=== PATIENT | male | born 1970 | race American Indian/Alaskan Native ===

== ENCOUNTER 2016-10-14 07:54 | Emergency (ER) | payer SELFPAY ==
[2016-10-14] MEDS ORDERED: CATAPRES PO ONE (11:12)
[2016-10-14 13:22] VITALS: BP 130/76
[2016-10-14] MEDS ORDERED: TYLENOL/CODEINE PO ONE (13:23)
--- NOTE | 2016-10-14 13:33 | Emergency Department Report ---
Entered by EVELYN FERGUSON, acting as scribe for PAM GONZALEZ PA. ED General Adult HPI - General Chief complaint: Sore Throat Stated complaint: SORE THROAT/COLD/HEADACHE Time Seen by Provider: 10/14/16 10:28 Source: patient Mode of arrival: Ambulatory Limitations: No Limitations - History of Present Illness Initial comments: 46 year old male presents to the ED for evaluation of sore throat and cough for 4 days. Patient also reports painful swallowing, subjective fever, congestion, and mild headache. Rates his throat pain as 9/10. He reports PMHx HTN but notes noncompliance with HTN medication for 1 year. Denies chest pain, shortness of breath, vision changes, abdominal pain, nausea, and vomiting. -: days(s) (4) Improves with: none Worsens with: other (swallowing) Associated Symptoms: cough, fever/chills (subjective), headaches, other (sore throat). denies: chest pain, nausea/vomiting, shortness of breath Treatments Prior to Arrival: none - Related Data Previous Rx's Medication Instructions Recorded Last Taken Type Acetamin/Codeine 120-12Mg/5 ml 5 ml PO TID PRN #100 ml 10/14/16 Unknown Rx [Tylenol/Codeine 120-12 mg/5 ml] Amoxicillin [Amoxicillin TAB] 875 mg PO BID #20 tablet 10/14/16 Unknown Rx amLODIPine [Norvasc] 5 mg PO DAILY #30 tab 10/14/16 Unknown Rx Allergies Allergy/AdvReac Type Severity Reaction Status Date / Time No Known Allergies Allergy Unverified 10/14/16 08:08 ED Review of Systems Comment: All other systems reviewed and negative Constitutional: chills, fever (subjective) Eyes: denies: vision change ENT: throat pain, other (difficulty swallowing). denies: ear pain, congestion ( nasal) Respiratory: cough, other (chest congestion). denies: shortness of breath Cardiovascular: denies: chest pain Gastrointestinal: denies: abdominal pain, nausea, vomiting, diarrhea ED Past Medical Hx - Past Medical History Previous Medical History?: Yes Hx Hypertension: Yes Hx Asthma: Yes - Surgical History Past Surgical History?: No - Social History Smoking Status: Never Smoker Substance Use Type: Non Opiate Pain, Other - Medications Home Medications: Home Medications Medication Instructions Recorded Confirmed Last Taken Type Acetamin/Codeine 120-12Mg/5 ml 5 ml PO TID PRN #100 ml 10/14/16 Unknown Rx [Tylenol/Codeine 120-12 mg/5 ml] Amoxicillin [Amoxicillin TAB] 875 mg PO BID #20 tablet 10/14/16 Unknown Rx amLODIPine [Norvasc] 5 mg PO DAILY #30 tab 10/14/16 Unknown Rx ED Physical Exam - General Limitations: No Limitations General appearance: alert, in no apparent distress - Head Head exam: Present: atraumatic, normocephalic - Eye Eye exam: Present: PERRL, EOMI - ENT ENT exam: Present: mucous membranes moist, normal external ear exam (External auditory canals and tympanic membranes clear; hearing grossly intact.), other ( Normal nasal mucosa with no nasal discharge.) - Expanded ENT Exam Expanded Throat exam: Positive: tonsillar erythema, tonsillomegaly. Negative: tonsillar exudate, R peritonsillar mass, L peritonsillar mass - Neck Neck exam: Present: full ROM, lymphadenopathy (left anterior cervical lymphadenopathy). Absent: meningismus, thyromegaly - Respiratory Respiratory exam: Present: normal lung sounds bilaterally. Absent: respiratory distress, wheezes, rales, rhonchi, chest wall tenderness - Cardiovascular Cardiovascular Exam: Present: regular rate, normal rhythm, normal heart sounds. Absent: systolic murmur, diastolic murmur - GI/Abdominal GI/Abdominal exam: Present: soft, normal bowel sounds. Absent: distended, tenderness, guarding, rebound, rigid - Neurological Exam Neurological exam: Present: alert, oriented X3, CN II-XII intact, normal gait. Absent: motor sensory deficit - Expanded Neurological Exam Expanded Patient oriented to: Present: person, place, time Speech: Present: fluid speech Cranial nerves: EOM's Intact: Normal, Facial Sensation: Normal Cerebellar function: [place]: Normal Motor strength exam: RUE: 5, LUE: 5, RLE: 5, LLE: 5 Best Eye Response ([place]): (4) open spontaneously Best Motor Response ([place]): (6) obeys commands Best Verbal Response ([place]): (5) oriented [place] Total: 15 - Psychiatric Psychiatric exam: Present: normal affect, normal mood - Skin Skin exam: Present: warm, dry, intact ED Course Vital Signs 03/10/14/16 10/14/16 08:09 11:34 11:35 Temperature 97.9 F Pulse Rate 88 88 Respiratory 20 16 Rate Blood Pressure 175/116 172/112 Blood Pressure 172/112 [Right] O2 Sat by Pulse 97 98 Oximetry 10/14/16 13:21 Temperature Pulse Rate 84 Respiratory 16 Rate Blood Pressure Blood Pressure 130/76 [Right] O2 Sat by Pulse 98 Oximetry ED Medical Decision Making - Lab Data Vital Signs 10/14/16 10/14/16 10/14/16 08:09 11:34 11:35 Temperature 97.9 F Pulse Rate 88 88 Respiratory 20 16 Rate Blood Pressure 175/116 172/112 Blood Pressure 172/112 [Right] O2 Sat by Pulse 97 98 Oximetry 10/14/16 13:21 Temperature Pulse Rate 84 Respiratory 16 Rate Blood Pressure Blood Pressure 130/76 [Right] O2 Sat by Pulse 98 Oximetry - Medical Decision Making 46 year old male patient presents complaining of sore throat, cough, and mild headache. Patient was given clonidine 0.2 mg and reports no headache post medication. Emphasized the importance of follow up with primary care physician and explained to patient that uncontrolled hypertension can lead to long-term complications of hypertension/elevated blood pressure including stroke , heart attack, disability, , paralysis, permanent loss of quality of life. Patient expressed understanding. His rapid strep test was negative. Patient is in no acute distress at this time. He will be discharged home and is encouraged to follow up with a primary care provider. He will be sent home on Norvasc, amoxicillin and Tylenol/codeine and is encouraged to return to the emergency room for any worsening symptoms. ED Disposition Clinical Impression: HTN (hypertension) Qualifiers: Hypertension type: essential hypertension Qualified Code(s): I10 - Essential ( primary) hypertension Pharyngitis Qualifiers: Pharyngitis/tonsillitis etiology: unspecified etiology Qualified Code(s): J02.9 - Acute pharyngitis, unspecified Disposition: DISCHARGED TO HOME OR SELFCARE Is pt being admited?: No Does the pt Need Aspirin: No Condition: Stable Instructions: Hypertension (ED), Strep Throat (ED), Pharyngitis (ED) Additional Instructions: Follow-up with primary care provider. Return to the emergency department if symptoms worsen. Prescriptions: Acetamin/Codeine 120-12Mg/5 ml [Tylenol/Codeine 120-12 mg/5 ml] 5 ml PO TID PRN #100 ml PRN Reason: Cough amLODIPine [Norvasc] 5 mg PO DAILY #30 tab Amoxicillin [Amoxicillin TAB] 875 mg PO BID #20 tablet Referrals: PRIMARY CARE,MD [Primary Care Provider] - 3-5 Days [facility] [Outside] - 3-5 Days Forms: Work/School Release Form(ED) Time of Disposition: 13:28 This documentation as recorded by the PHYLLIS goss REBEKAH,accurately reflects the service I personally performed and the decisions made by LISA alvarez NATASHA, PA.
== END 2016-10-14 13:30 | disposition home or self-care (01) ==
LOC: ED 07:54
DX: I10 Essential (primary) hypertension (principal); J02.9 Acute pharyngitis, unspecified; J45.909 Unspecified asthma, uncomplicated
CPT/HCPCS: 87116; 87430; 99283

== ENCOUNTER 2019-07-06 13:04 | Emergency (ER) | payer SELFPAY ==
--- NOTE | 2019-07-06 13:20 | Emergency Department Report ---
Blank Doc - Documentation Documentation: 49-year-old male that presents with right leg pain with started in the calf ar ea. This initial assessment/diagnostic orders/clinical plan/treatment(s) is/are subject to change based on patient's health status, clinical progression and re- assessment by fellow clinical providers in the ED. Further treatment and workup at subsequent clinical providers discretion. Patient/guardians urged not to elope from the ED as their condition may be serious if not clinically assessed and managed. Initial orders include: 1- Patient sent to [facility] for further evaluation and treatment 2- Doppler US
[2019-07-06 13:43] VITALS: BP 159/93
--- NOTE | 2019-07-06 14:43 | Vascular Lab Report ---
DUPLEX DOPPLER LOWER EXTREMITY VEINS, RIGHT INDICATION: right leg pain. TECHNIQUE: Duplex doppler imaging was performed through the veins of the right lower extremity using venous comp ression and other maneuvers. COMPARISON: No relevant prior imaging study available. FINDINGS: Right Common femoral vein: Negative. Right Superficial femoral vein: Negative. Right Popliteal vein: Negative. Right Calf veins: Negative. Additional findings: None.. IMPRESSION: 1. No sonographic evidence for DVT in the right lower extremity. Signer Name: Wood Dodson MD Signed: 07/06/2019 2:38 PM Workstation Name: [id number]
--- NOTE | 2019-07-06 15:27 | Emergency Department Report ---
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 He has been previous to a chiropractor as well as an orthopedic cast specialist. He's had x-rays of his back which were unremarkable. He's been told that he should get an MR exam in the past but has not yet. He complains of lower back pain which is bilateral with some radiation down his right thigh. He was sent for a Doppler exam today. His leg is not swollen. He does not complain of any respiratory symptoms. It does appear that he has a sciatica type pattern. He denies any bowel or bladder problem. He is able to ambulate. States he's had no weakness or numbness. -: Gradual, year(s) Location: back Radiation: non-radiation (right thigh) Quality: aching Consistency: intermittent Improves with: none Worsens with: none Associated Symptoms: denies other symptoms - Related Data Previous Rx's Medication Instructions Recorded Last Taken Type Acetamin/Codeine 120-12Mg/5 ml 5 ml PO TID PRN #100 ml 10/14/16 Unknown Rx [Tylenol/Codeine 120-12 mg/5 ml] Amoxicillin [Amoxicillin TAB] 875 mg PO BID #20 tablet 10/14/16 Unknown Rx amLODIPine [Norvasc] 5 mg PO DAILY #30 tab 10/14/16 Unknown Rx Cyclobenzaprine HCl [Flexeril 5 MG 5 mg PO TID #14 tab 07/06/19 Unknown Rx TAB] HYDROcodone/APAP 5-325 [[place] 1 each PO Q6HR PRN #7 tablet 07/06/19 Unknown Rx 5/325] Allergies Allergy/AdvReac Type Severity Reaction Status Date / Time No Known Allergies Allergy Unverified 10/14/16 08:08 ED Review of Systems ROS: Stated complaint: RT LEG PAIN Other details as noted in HPI Constitutional: denies: chills, fever Eyes: denies: eye pain, eye discharge, vision change ENT: denies: ear pain, throat pain Respiratory: denies: cough, shortness of breath, wheezing Cardiovascular: denies: chest pain, palpitations Endocrine: no symptoms reported Gastrointestinal: denies: abdominal pain, nausea, diarrhea Genitourinary: denies: urgency, dysuria Musculoskeletal: denies: back pain, joint swelling, arthralgia Skin: denies: rash, lesions Neurological: denies: headache, weakness, paresthesias Psychiatric: denies: anxiety, depression Hematological/Lymphatic: denies: easy bleeding, easy bruising ED Past Medical Hx - Past Medical History Previous Medical History?: Yes Hx Hypertension: Yes Hx Asthma: Yes - Surgical History Past Surgical History?: No - Social History Smoking Status: Never Smoker Substance Use Type: None - Medications Home Medications: Home Medications Medication Instructions Recorded Confirmed Last Taken Type Acetamin/Codeine 120-12Mg/5 ml 5 ml PO TID PRN #100 ml 10/14/16 Unknown Rx [Tylenol/Codeine 120-12 mg/5 ml] Amoxicillin [Amoxicillin TAB] 875 mg PO BID #20 tablet 10/14/16 Unknown Rx amLODIPine [Norvasc] 5 mg PO DAILY #30 tab 10/14/16 Unknown Rx Cyclobenzaprine HCl [Flexeril 5 MG 5 mg PO TID #14 tab 07/06/19 Unknown Rx TAB] HYDROcodone/APAP 5-325 [[place] 1 each PO Q6HR PRN #7 tablet 07/06/19 Unknown Rx 5/325] ED Physical Exam - General Limitations: No Limitations General appearance: alert, in no apparent distress - Head Head exam: Present: atraumatic, normocephalic - Eye Eye exam: Present: normal appearance. Absent: scleral icterus - ENT ENT exam: Present: mucous membranes moist - Neck Neck exam: Present: normal inspection - Respiratory Respiratory exam: Present: normal lung sounds bilaterally. Absent: respiratory distress - Cardiovascular Cardiovascular Exam: Present: regular rate, normal rhythm. Absent: systolic murmur, diastolic murmur, rubs, gallop - GI/Abdominal GI/Abdominal exam: Present: soft, normal bowel sounds. Absent: distended, tenderness, guarding, rebound, rigid - Rectal Rectal exam: Present: deferred - Extremities Exam Extremities exam: Present: normal inspection, full ROM, normal capillary refill, other (straight leg raise was negative bilaterally). Absent: tenderness, pedal edema, joint swelling, calf tenderness - Back Exam Back exam: Present: normal inspection, muscle spasm, paraspinal tenderness. Absent: CVA tenderness (R), CVA tenderness (L), vertebral tenderness - Neurological Exam Neurological exam: Present: alert, oriented X3, CN II-XII intact. Absent: motor sensory deficit (normal dorsi and plantar flexion) - Psychiatric Psychiatric exam: Present: normal affect, normal mood - Skin Skin exam: Present: warm, dry, intact, normal color. Absent: rash ED Course Vital Signs 07/06/19 13:09 Temperature 97.8 F Pulse Rate 67 Respiratory 18 Rate Blood Pressure 159/93 [Right] O2 Sat by Pulse 100 Oximetry ED Medical Decision Making - Radiology Data Radiology results: image reviewed (Doppler negative per technical project lead) Critical care attestation.: If time is entered above; I have spent that time in minutes in the direct care of this critically ill patient, excluding procedure time. ED Disposition Clinical Impression: Low back pain with sciatica Qualifiers: Chronicity: acute Back pain laterality: right Sciatica laterality: sciatica of right side Qualified Code(s): M54.41 - Lumbago with sciatica, right side Disposition: TO HOME OR SELFCARE Is pt being admited?: No Does the pt Need Aspirin: No Condition: Stable Instructions: Lumbar Radiculopathy (ED), Arthralgia (ED) Additional Instructions: I would recommend further evaluation and probably an MRI. Return to the emergency department should she develop any acute worsening of your symptoms, weakness, numbness, difficulty with her bowels or bladder. Follow-up with orthopedic physician. Prescriptions: Cyclobenzaprine HCl [Flexeril 5 MG TAB] 5 mg PO TID #14 tab HYDROcodone/APAP 5-325 [[place] 5/325] 1 each PO Q6HR PRN #7 tablet PRN Reason: Pain Referrals: MARCIA BOWDEN MD [Staff Physician] - 3-5 Days Time of Disposition: 15:26
== END 2019-07-06 15:30 | disposition home or self-care (01) ==
LOC: ED 13:04
DX: M54.41 Lumbago with sciatica, right side (principal); I10 Essential (primary) hypertension; J45.909 Unspecified asthma, uncomplicated; Z79.899 Other long term (current) drug therapy